=== PATIENT | male | born 1985 | race Caucasian/White ===

== ENCOUNTER 2023-08-29 11:44 | Emergency (ER) | payer OTHER ==
[2023-08-29 11:59] VITALS: BP 149/100; O2SAT 100
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
== END 2023-08-29 12:38 | disposition home or self-care (01) ==
LOC: ED 11:44
DX: S63.502A Unspecified sprain of left wrist, initial encounter (principal); V59.40XA Driver of pick-up truck or van injured in collision with unspecified motor vehicles in traffic accident, initial encounter; Y92.410 Unspecified street and highway as the place of occurrence of the external cause
CPT/HCPCS: 99282; 99283

== ENCOUNTER 2024-05-14 17:37 | Emergency (ER) | payer BC ==
[2024-05-14] MEDS ORDERED: LIDOCAINE-EPINEPH-TETRACAINE 3 ML SYRINGE TOP STA (18:00)
--- NOTE | 2024-05-14 19:19 | CT Report ---
PROCEDURE: Head WO INDICATIONS: fall/head injury/LOC TECHNIQUE: Noncontrast 4.5 mm thick angled axial sections acquired from the foramen magnum to the vertex. For r adiation dose reduction, the following was used: automated exposure control, adjustment of mA and/or kV according to patient size. COMPARISON: None. FINDINGS: Image quality: Excellent. CSF spaces: Basal cisterns are patent. No extra-axial fluid collections. Ventricles are normal in size and shape. Brain: No midline shift. No intracranial masses or hemorrhage. Leone-white matter interface is norm al. Skull and face: Right posterior scalp lacerations with skin marianela. Calvarium and visualized facial bones are intact, without suspicious lesions. Sinuses: Small air-fluid level within the right maxillary sinus. Visualized sinuses and mastoids are otherwise clear. IMPRESSION: No acute intracranial pathology. Reviewed by: Mor Strickland MD on 05/14/2024 7:18 PM PDT Approved by: Mor Strickland MD on 05/14/2024 7:18 PM PDT Station ID: [id number]
[2024-05-14 19:34] VITALS: BP 139/90; O2SAT 100
--- NOTE | 2024-05-14 19:34 | ED Physician Documentation ---
PD HPI HEAD INJURY - Stated complaint Stated Complaint: HEAD LAC - Chief complaint Chief Complaint: Laceration - History obtained from History obtained from: Patient - Additional information Additional information: The patient comes to the emergency department chief complaint of head injury. He was outside working in the yard when he accidentally disturbed a bees' nest and began backing away to try to get away from the bees. He tripped over a rock and fell backwards, hitting his head on another rock and sustaining a laceration. The patient thinks that he briefly lost consciousness, because when he got back up, he felt groggy as though he had not been awake while he was on the ground. The patient states he is feeling fine now. This just happened this afternoon. He is not sure when his last tetanus shot was but thinks it might have been about 8 years ago. No other complaints or injuries. PD PAST MEDICAL HISTORY - Past Medical History Past Medical History: No : Kidney stones - Past Surgical History Past Surgical History: No - Present Medications Home Medications: Ambulatory Orders Medication Instructions Recorded Confirmed No Known Home Medications 08/29/23 05/14/24 - Allergies Allergies/Adverse Reactions: Allergies Allergy/AdvReac Type Severity Reaction Status Date / Time Penicillins Allergy Rash Verified 05/14/24 17:53 - Social History Does the pt smoke?: No Smoking Status: Never smoker Does the pt drink ETOH?: No Does the pt have substance abuse?: No - Immunizations Immunizations are current?: No Immunizations: TDAP >10years/unknown - POLST Patient has POLST: No PD ED PE NORMAL - Vitals Vital signs reviewed: Yes - General General: Alert and oriented X 3, No acute distress, Well developed/nourished - HEENT HEENT: PERRL, EOMI, Moist mucous membranes, Other (2.5 cm irregular laceration to posterior scalp. No foreign bodies.Bleeding controlled. No bony step-off.) - Neck Neck: Supple, no meningeal sign, No bony TTP - Respiratory Respiratory: No respiratory distress - Derm Derm: Normal color, Warm and dry, No rash - Extremities Extremities: No deformity, Normal ROM s pain - Neuro Neuro: Other (alert, no gross deficits.) - Psych Psych: Normal mood, Normal affect Results - Vitals Vitals: Vital Signs - 24 hr 05/14/24 05/14/24 05/14/24 17:46 17:53 17:58 Temperature 36.4 C L Heart Rate 79 72 Respiratory 18 16 17 Rate Blood Pressure 175/102 H 139/90 H O2 Saturation 99 100 05/14/24 19:00 Temperature Heart Rate Respiratory 17 Rate Blood Pressure O2 Saturation Oxygen O2 Source Room air - Rads (name of study) head CT Relevant Findings:: Final report received, See rad report (neg) Procedures - Laceration (location) scalp Length in cm: 2.5 Wound type: Irregular, Clean (Cleaned by staff prior to exam.) Neurovascular status: Vascular intact Anesthesia: Lidocaine 1% Wound preparation: Irrigated copiously NS, Wound explored, To the base Skin layer closure: Marianela (5) Other: Patient tolerated well, No complications, Neurovascular intact, Dressing applied, Tetanus booster given PD Medical Decision Making - ED course Complexity details: reviewed results, re-evaluated patient, considered differential, d/w patient, d/w family ED course: Head CT was negative. Wound was repaired as above and tetanus updated. Pt was counseled regarding wound care, timeline for staple removal, and the usual indications for sooner return. Departure - Departure Disposition: 01 Home, Self Care Clinical Impression: Laceration Closed head injury Qualifiers: Encounter type: initial encounter Qualified Code(s): S09.90XA - Unspecified injury of head, initial encounter Condition: Stable Instructions: ED Head Injury Closed, ED Laceration Scalp Stitch Or Stap Comments: Your head CT looks good tonight. Your scalp laceration has been repaired with 5 marianela which will need to be removed in about 10 days. You may allow water and soap to run over the wound but please do not rub, scrub, or immerse the wound. This is to prevent a theoretical risk of infection. You may feel a little dizzy or "off" for the next several days to a week or 2. You may even have some nausea and drowsiness. This is normal after hitting your head and sustaining a concussion. However, if you begin to have repetitive vomiting or are noticeably incoordinated or developing an increasingly severe headache, please return to the emergency department for reevaluation. Your tetanus shot has been updated today and you will not need another one for 10 years. Forms: PCP List Discharge Date/Time: 05/14/24 19:52
[2024-05-14] MEDS: TETANUS/DIPHTHERIA/PERTUSSIS 0.5 ML SYRINGE IM ONE (19:41)
== END 2024-05-14 19:52 | disposition home or self-care (01) ==
LOC: ED 17:37
DX: S01.01XA Laceration without foreign body of scalp, initial encounter (principal); S06.9X1A Unspecified intracranial injury with loss of consciousness of 30 minutes or less, initial encounter; W01.198A Fall on same level from slipping, tripping and stumbling with subsequent striking against other object, initial encounter; Y93.H9 Activity, other involving exterior property and land maintenance, building and construction; Z23 Encounter for immunization; Z87.442 Personal history of urinary calculi
CPT/HCPCS: 12001; 90471; 99283; 99284